=== PATIENT | female | born 1985 | race Caucasian/White ===

== ENCOUNTER 2017-08-25 10:37 | Emergency (ER) | payer OTHER ==
[2017-08-25 11:22] LABS: BASOPHILS % (AUTO) 0.5 %; EOSINOPHILS # (AUTO) 0.3 10^3/uL (0.0-0.7); EOSINOPHILS % (AUTO) 3.9 %; HGB - HEMOGLOBIN 14.7 g/dL (12.0-16.0); LYMPHOCYTES # (AUTO) 1.5 10^3/uL (1.5-3.5); MEAN CORPUSCULAR HEMOGLOBIN 29.7 pg (27.0-31.0); MEAN CORPUSCULAR VOLUME 90.2 fL (81.0-99.0); MEAN PLATELET VOLUME 9.5 fL (7.9-10.8); MONOCYTES # (AUTO) 0.5 10^3/uL (0.0-1.0); MONOCYTES % (AUTO) 6.3 %; NEUTROPHILS # (AUTO) 6.3 10^3/uL (1.5-6.6); NEUTROPHILS % (AUTO) 72.3 %; PLT - PLATELET COUNT 229 10^3/uL (130-450); RED BLOOD COUNT 4.94 10^6/uL (4.20-5.40); RED CELL DISTRIBUTION WIDTH 13.3 % (12.0-15.0); WHITE BLOOD COUNT 8.7 x10^3/uL (4.8-10.8)
[2017-08-25 11:32] LABS: BILIRUBIN,URINE NEGATIVE (NEGATIVE); GLUCOSE, URINE (UA) NEGATIVE (NEGATIVE); KETONES,URINE (UA) NEGATIVE (NEGATIVE); LEUKOCYTE ESTERASE, URINE NEGATIVE (NEGATIVE); NITRITE,URINE NEGATIVE (NEGATIVE); OCCULT BLOOD,URINE NEGATIVE (NEGATIVE); PROTEIN,URINE NEGATIVE (NEGATIVE); UROBILINOGEN,URINE 0.2 (NORMAL) E.U./dL (NORMAL)
[2017-08-25 11:35] LABS: ALBUMIN 4.5 g/dL (3.2-5.5); ALBUMIN/GLOBULIN RATIO 1.3 (1.0-2.2); BILIRUBIN,TOTAL 0.8 mg/dL (0.2-1.0); CALCIUM 9.6 mg/dL (8.5-10.3); CREATININE 0.7 mg/dL (0.4-1.0); TOTAL PROTEIN 8.1 g/dL (6.7-8.2)
[2017-08-25 11:42] LABS: CLARITY,URINE CLEAR (CLEAR)
[2017-08-25 11:43] LABS: HCG UR QUAL NEGATIVE
[2017-08-25] MEDS ORDERED: FAMOTIDINE 20 MG/50 ML 50 ML IV ONE (12:14)
[2017-08-25] MEDS ORDERED: LIDOCAINE VISCOUS 2% 15 ML UDC MM STA (12:14)
[2017-08-25] MEDS ORDERED: MAG HYDROX/AL HYDROX/SIMETH 30 ML UDC PO STA (12:14)
--- NOTE | 2017-08-25 12:17 | ED Physician Documentation ---
PD HPI ABD PAIN - Stated complaint Stated Complaint: SOA/AB PX - Chief complaint Chief Complaint: Abd Pain - History obtained from History obtained from: Patient - History of Present Illness Timing - duration: Days (3) Timing - details: Still present Quality: Dull Location: LUQ Associated symptoms: Nausea. No: Fever, Vomiting Similar symptoms before: Diagnosis (History of similar symptoms with nsaid use.) - Additional information Additional information: The patient is a 32-year-old female who presents with left upper quadrant abdominal pain that has been waxing and waning for the past 3 days. She states , "I think I have a stomach ulcer." She recently had an episode of lower back pain for which she was taking Aleve and Advil. She has had similar symptoms in the past when taking NSAIDs. She reports nausea, without vomiting. She denies fever, cough, or dysuria. Her last menstrual period was 2 weeks ago. She has been treated in the past for peptic ulcer disease, but is not currently taking any medication for gastric distress. Review of Systems Constitutional: denies: Fever Nose: denies: Congestion Throat: denies: Sore throat Cardiac: denies: Chest pain / pressure Respiratory: denies: Dyspnea, Cough GI: reports: Abdominal Pain, Nausea. denies: Vomiting : reports: LMP (2 weeks ago.). denies: Dysuria Skin: denies: Rash Musculoskeletal: denies: Back pain Neurologic: denies: Headache PD PAST MEDICAL HISTORY - Past Medical History Past Medical History: Yes Endocrine/Autoimmune: None GI: Ulcers [employer]: Endometriosis - Past Surgical History Past Surgical History: Yes General: Appendectomy /[employer]ER: Endometrial ablation - Present Medications Home Medications: Ambulatory Orders Medication Instructions Recorded Confirmed raNITIdine [Zantac] 150 mg PO BID #30 tablet 08/25/17 - Allergies Allergies/Adverse Reactions: Allergies Allergy/AdvReac Type Severity Reaction Status Date / Time No Known Drug Allergies Allergy Verified 08/25/17 10:43 - Social History Does the pt smoke?: No Smoking Status: Never smoker PD ED PE NORMAL - Vitals Vital signs reviewed: Yes (Borderline hypertension initially.) - General General: Alert and oriented X 3, Well developed/nourished - HEENT HEENT: Atraumatic, Moist mucous membranes, Pharynx benign - Neck Neck: No adenopathy - Cardiac Cardiac: RRR - Respiratory Respiratory: No respiratory distress, Clear bilaterally - Abdomen Abdomen: Normal bowel sounds, Soft, No organomegaly, Other (Mild tenderness to palpation in the left upper quadrant, without rebound tenderness or guarding.) - Back Back: No CVA TTP - Derm Derm: No rash - Neuro Neuro: Alert and oriented X 3, No motor deficit, Normal speech Results - Vitals Vitals: Oxygen O2 Source Room air - EKG (time done) 10:53 Rate: Rate (enter#) (92) Rhythm: NSR [place]: Normal Intervals: Other (shortened [place] interval.) QRS: Normal Ischemia: Normal ST segments Computer interpretation: Agree with computer - Labs Labs: Laboratory Tests 08/25/17 08/25/17 08/25/17 11:05 11:05 11:21 WBC 8.7 RBC 4.94 Hgb 14.7 Hct 44.6 MCV 90.2 MCH 29.7 MCHC 33.0 RDW 13.3 Plt Count 229 MPV 9.5 Neut # (Auto) 6.3 Lymph # (Auto) 1.5 [place] # (Auto) 0.5 Eos # (Auto) 0.3 Baso # (Auto) 0.0 Absolute Nucleated RBC 0.00 Nucleated RBC % 0.1 Sodium 136 Potassium 3.9 Chloride 101 Carbon Dioxide 26 Anion Gap 9.0 BUN 11 Creatinine 0.7 Estimated GFR (MDRD) 96 Glucose 104 H Calcium 9.6 Total Bilirubin 0.8 AST 53 H ALT 105 H Alkaline Phosphatase 38 L Total Protein 8.1 Albumin 4.5 Globulin 3.6 Albumin/Globulin Ratio 1.3 Lipase 36 Urine Color YELLOW Urine Clarity CLEAR Urine pH 8.0 H Ur Specific [place] 1.010 Urine Protein NEGATIVE Urine Glucose (UA) NEGATIVE Urine Ketones NEGATIVE Urine Occult Blood NEGATIVE Urine Nitrite NEGATIVE Urine Bilirubin NEGATIVE Urine Urobilinogen 0.2 (NORMAL) Ur Leukocyte Esterase NEGATIVE Ur Microscopic Review NOT INDICATED Urine Culture Comments NOT INDICATED Urine HCG, Qual 08/25/17 11:21 WBC RBC Hgb Hct MCV MCH MCHC RDW Plt Count MPV Neut # (Auto) Lymph # (Auto) [place] # (Auto) Eos # (Auto) Baso # (Auto) Absolute Nucleated RBC Nucleated RBC % Sodium Potassium Chloride Carbon Dioxide Anion Gap BUN Creatinine Estimated GFR (MDRD) Glucose Calcium Total Bilirubin AST ALT Alkaline Phosphatase Total Protein Albumin Globulin Albumin/Globulin Ratio Lipase Urine Color Urine Clarity Urine pH Ur Specific [place] 1.010 Urine Protein Urine Glucose (UA) Urine Ketones Urine Occult Blood Urine Nitrite Urine Bilirubin Urine Urobilinogen Ur Leukocyte Esterase Ur Microscopic Review Urine Culture Comments Urine HCG, Qual NEGATIVE PD MEDICAL DECISION MAKING - ED course Complexity details: reviewed results, re-evaluated patient, considered differential, d/w patient ED course: The patient's presentation is most consistent with acid peptic disease, likely exacerbated by recent use of NSAIDs. CBC and urinalysis are normal, and chemistry panel is unremarkable. Her presentation does not suggest pancreatitis or biliary colic. Treatment in the emergency department included administration of GI cocktail orally, and famotidine 20 mg IV. Her symptoms resolved with the above treatment. She is being discharged with prescription for ranitidine. I discussed with her the likely diagnosis, symptomatic treatment and outpatient follow-up, as well as potentially worrisome signs or symptoms that should prompt reevaluation is needed emergency department. - Sepsis Event Vital Signs: Oxygen O2 Source Room air Departure - Departure Disposition: Home, Self Care Clinical Impression: Gastritis Qualifiers: Gastritis type: unspecified gastritis Chronicity: acute Gastritis bleeding: without bleeding Qualified Code(s): K29.00 - Acute gastritis without bleeding Condition: Stable Instructions: ED PUD Vs Gastritis Prescriptions: raNITIdine [Zantac] 150 mg PO BID #30 tablet Comments: Take ranitidine twice daily as prescribed. You can use liquid antacid, such as Maalox or Mylanta, if you develop recurrent symptoms. Avoid taking nonsteroidal anti-inflammatory medications, such as Aleve or ibuprofen. Follow up with primary physician within 2 weeks. Call to schedule appointment. Return to the emergency department if you develop increasing abdominal pain, persistent vomiting, or otherwise worsening symptoms. Discharge Date/Time: 08/25/17 13:45
[2017-08-25 13:46] VITALS: BP 114/83
== END 2017-08-25 13:45 | disposition home or self-care (01) ==
LOC: ED 10:37
DX: K29.00 Acute gastritis without bleeding (principal); Z87.11 Personal history of peptic ulcer disease; Z87.42 Personal history of other diseases of the female genital tract
CPT/HCPCS: 36415; 80053; 81003; 81025; 83690; 85025; 93005; 96365; 99283; A9270; 81001; 87086

== ENCOUNTER 2017-09-23 14:55 | Outpatient (CLI) | payer OTHER ==
--- NOTE | 2017-09-23 17:21 | Ultrasound Report ---
Procedure Date: 09/23/2017 Accession Number: [id number] / [id number] Procedure: US - Abdomen Limited CPT Code: FULL RESULT: EXAM: ABDOMEN ULTRASOUND LIMITED, RUQ EXAM DATE: 09/23/2017 03:41 PM. CLINICAL HISTORY: Right upper quadrant abdominal pain COMPARISON: None. TECHNIQUE: Real-time scanning was performed with static images obtained. FINDINGS: Liver: Normal parenchymal echotexture. Main portal vein flow: Hepatopetal. Gallbladder: Partially contracted. No convincing stones or sludge. No sonographic Carney's sign. Biliary System: CBD measures 3-4 mm. No intrahepatic or extrahepatic ductal dilatation. Right Kidney: 11.9 cm in length. Normal parenchymal echotexture. No visualized shadowing stones or hydronephrosis. IMPRESSION: Unremarkable right upper quadrant ultrasound. Specifically, no cholelithiasis or sonographic evidence for acute cholecystitis. IMPRESSION: Partially contracted gallbladder. No cholelithiasis or sonographic evidence for acute cholecystitis. RADIA
== END 2017-09-23 14:56 | disposition home or self-care (01) ==
LOC: DI 14:55
PROVIDERS: ATTEND Internal Medicine Gastroenterology
DX: R10.11 Right upper quadrant pain (principal)
CPT/HCPCS: 76705

== ENCOUNTER 2017-10-24 08:35 | Outpatient (CLI) | payer OTHER ==
[2017-10-24] MEDS ORDERED: SINCALIDE 5 MCG VIAL ONE (09:50)
--- NOTE | 2017-10-24 16:01 | Nuclear Medicine Report ---
Procedure Date: 10/24/2017 Accession Number: [id number] / [id number] Procedure: NM - Hepatobiliary HIDA w/ Rx CPT Code: FULL RESULT: EXAM: HEPATOBILIARY SCAN WITH CCK/KINEVAC ADMINISTRATION EXAM DATE: 10/24/2017 12:00 PM. CLINICAL HISTORY: ABDOMINAL PAIN, UPPER. COMPARISON: Ultrasound exam dated 09/23/2017. TECHNIQUE: Following the intravenous administration of 5.2 mCi of Tc99m Mebrofenin, a hepatobiliary scan was done centered on the liver and gallbladder in multiple sequential images and projections. Following the intravenous administration of 1.2 mcg of CCK/ Kinevac over the course of approximately 60 minutes, dynamic imaging was done and the gallbladder ejection fraction was calculated. FINDINGS: Normal extraction of tracer from the blood pool indicating normal hepatocellular function. The liver size and shape is grossly within normal limits. There is activity visualized within the bile ducts, gallbladder, and small bowel within the first hour. With CCK administration, the gallbladder demonstrates an effective contraction. The gallbladder ejection fraction is calculated to be 76%, well above the lower limit of normal of 38% for a 60-minute injection. The patient did not report symptoms after CCK administration. Positive for enterogastric bile reflux. IMPRESSION: 1. Patent cystic duct. 2. Patent common bile duct. 3. Negative for acute or chronic cholecystitis. 4. Positive for enterogastric bile reflux. 5. Gallbladder ejection fraction of 76%. RADIA
== END 2017-10-24 08:36 | disposition home or self-care (01) ==
LOC: DI 08:35
PROVIDERS: ATTEND Internal Medicine Gastroenterology
DX: R10.10 Upper abdominal pain, unspecified (principal)
CPT/HCPCS: 78227

== ENCOUNTER 2017-11-29 10:16 | Outpatient (CLI) | payer OTHER ==
--- NOTE | 2017-11-29 11:26 | DEXA Report ---
Reason: OSTEOPOROSIS Procedure Date: 11/29/2017 Accession Number: [id number] / [id number] Procedure: DEX - Dexa Spine and/or Hip CPT Code: FULL RESULT: EXAM: Dexa Spine and/or Hip DATE: 11/29/2017 10:39 AM CLINICAL HISTORY: OSTEOPOROSIS TECHNIQUE: Dual energy x-ray absorptiometry (DEXA) was performed on a [facility]. Regions measured are the AP Spine, femoral neck, and if needed forearm. COMPARISON: None. In accordance with the International Society for Clinical Densitometry (ISCD) guidelines, data from previous exams may be reanalyzed using current recommendations and techniques. This is done to allow a more accurate basis for comparison with the current study. FINDINGS: The data for the lumbar spine is as follows: BMD (g/cm/cm) T-SCORE Z-SCORE REGION L1 0.918 -1.8 -1.5 L2 0.967 -1.9 -1.7 L3 1.100 -0.8 -0.6 L4 1.063 -1.1 -0.9 TOTAL 1.018 -1.4 -1.1 NOTE: All evaluable vertebrae are used for classification The data for the hip is as follows: BMD (g/cm/cm) T-SCORE Z-SCORE REGION Neck 0.785 -1.8 -1.4 TOTAL 0.760 -2.0 -1.7 NOTE: The femoral neck or total proximal femur, whichever is lowest, is used for classification. IMPRESSION: THE WHO CLASSIFICATION BASED ON THE INTERNATIONAL REFERENCE STANDARD IS OSTEOPENIA. THE FRACTURE RISK IS INCREASED. RECOMMENDATION: Patients with diagnosis of osteoporosis or osteopenia should have regular bone mineral density assessment. For those eligible for Medicare, routine testing is allowed once every 2 years. Testing frequency can be increased for patients who have rapidly progressing disease or for those who are receiving medical therapy to restore bone mass. COMMENT: World Health Organization (WHO) definitions for osteoporosis and osteopenia: NORMAL BMD: T-score at -1.0 or higher, fracture risk is low OSTEOPENIA BMD: T-score between -1.0 and -2.5, fracture risk is increased. OSTEOPOROSIS BMD: T-score at -2.5 or lower, fracture risk is high. National Osteoporosis Foundation recommends: 1. Obtain adequate dietary calcium (at least 1200 mg per day) and vitamin D (400-800 international units per day). 2. Participate, as appropriate, in regular weightbearing and muscle-strengthening exercise. 3. Avoid tobacco use and reduce alcohol and caffeine intake. 4. For more detailed information see the website at www.NOF.org.
== END 2017-11-29 10:17 | disposition home or self-care (01) ==
LOC: DI 10:16
PROVIDERS: ATTEND Physician Assistant
DX: M85.89 Other specified disorders of bone density and structure, multiple sites (principal)
CPT/HCPCS: 77080